=== PATIENT | female | born 1945 | race Caucasian/White ===

== ENCOUNTER → 2016-11-10 | Emergency (ER) | payer MEDICARE, OTHER ==
[2016-11-10 11:20] LABS: BASOPHILS 0.3 % (0-2); EOSINOPHILS 2.1 % (0-7); HEMATOCRIT 38.4 % (36.0-48.0); IMMATURE GRANULOCYTES 0.1 % (0-5); LYMPHOCYTES 18.3 % (15-50); MCH 30.4 pg (26.0-34.0); MCHC 33.9 g/dL (31.0-37.0); MCV 89.9 fL (80.0-100.0); MEAN PLATELET VOLUME 10.1 fL (7.4-10.4); MONOCYTES 7.8 % (2-11); NEUTROPHILS 71.4 % (40-80); PLATELET COUNT 304 10x3/uL (130-400); RBC 4.27 10x6/uL (4.00-5.40); RDW 11.6 % (11.5-14.5); WBC 9.8 10x3/uL (4.8-10.8)
[2016-11-10 11:49] LABS: ALBUMIN 3.5 g/dL (3.4-5.0); ALKALINE PHOSPHATASE 83 U/L (46-116); ALT (SGPT) 23 U/L (10-68); BILIRUBIN - TOTAL 0.31 mg/dL (0.2-1.3); CALC OSMOLALITY 263 mosm/kg (275-300); CALCIUM 8.8 mg/dL (8.5-10.1); CARBON DIOXIDE 27.7 mmol/L (21.0-32.0); CHLORIDE - SERUM 99 mmol/L (98-107); CREATININE - SERUM 0.9 mg/dL (0.6-1.3); GLUCOSE 99 mg/dL (74-106); POTASSIUM - SERUM 3.7 mmol/L (3.5-5.1); PROTEIN - SERUM 6.6 g/dL (6.4-8.2); SODIUM 132 mmol/L (136-145); UREA NITROGEN 11 mg/dL (7-18); eGFR NON AFRICAN AMERICAN 65 mL/min (90-120)
[2016-11-10 12:03] LABS: CKMB 0.3 U/L (0.0-3.6); CREATINE KINASE 47 UL (21-215)
[2016-11-10 12:10] LABS: TROPONIN-I < 0.017 ng/mL (0.000-0.060)
[2016-11-10 12:41] LABS: APPEARANCE CLEAR (CLEAR); COLOR YELLOW (YELLOW); LEUKOCYTE ESTERASE NEGATIVE (NEGATIVE); NITRITE NEGATIVE (NEGATIVE)
[2016-11-10 12:42] LABS: BILIRUBIN NEGATIVE (NEGATIVE); GLUCOSE NEGATIVE (NEGATIVE); KETONE NEGATIVE (NEGATIVE); PROTEIN NEGATIVE (NEGATIVE); UROBILINOGEN NORMAL (NORMAL)
== END ==
LOC: D.ER 09:52
PROVIDERS: Nurse Practitioner Acute Care
DX: R55 Syncope and collapse (principal); Z95.0 Presence of cardiac pacemaker

== ENCOUNTER 2016-12-20 08:00 | Outpatient (CLI) | payer MEDICARE, OTHER | END 2016-12-20 23:59 | disposition home or self-care (01) | LOC: D.RAD 08:00 | DX: Z00.00 Encounter for general adult medical examination without abnormal findings (principal) ==

== ENCOUNTER → 2017-09-01 15:09 | Outpatient (CLI) | payer MEDICARE, OTHER | END | disposition home or self-care (01) | LOC: D.CT 15:09 | DX: R74.8 Abnormal levels of other serum enzymes (principal) ==